=== PATIENT | male | born 1940 | race Caucasian/White ===

== ENCOUNTER 2017-01-22 12:08 | Inpatient (IN) | payer OTHER ==
[2017-01-22] MEDS ORDERED: DUONEB 0.5 MG/3 MG ONE (12:19)
[2017-01-22] MEDS ORDERED: DUONEB 0.5 MG/3 MG NEB ONE (12:21)
--- NOTE | 2017-01-22 12:53 | DR.GENAD ---
HPI - PCP Primary Care Physician: AISHA - HPI Comment HPI Comment: PATIENT TOOK NEB TREATMENT AT HOME WITHOUT IMPROVEMENT. WEAK AND FATIGUE. DECREASE ORAL INTAKE. DAILY MEDS NOT TAKING. - Complaint/Symptoms Chief Complaint Doctors Comments: INCRESING SOB, COUGH, FEVER TIMES 3 DAYS. Chief Complaint:: PATIENT STATED FOR THE PAST 3 DAYS DAYS HE HAS HAD PROBLEMS CATCHING HIS BREATH FOR 3 DAYS - Nurses notes reviewed Nurses Notes Review: Yes - Source History Provided: Patient - Mode of Arrival Mode of Arrival: Ambulatory - Timing Onset of Chief Complaint: 01/20/17 - Duration Duration: Constant Duration: Days - Severity Severity: Moderate PMH - PMH Past Medical History: Yes Past Medical History: COPD Past Surgical History: Yes Surgical History: Appendectomy, Ortho Surgery Past Surgical History Comment: PACEMAKER - Family History History of Family Medical Conditions: No - Social History Does patient currently use any type of tobacco product: No Have you used tobacco products in the last 12 months: No Type of Tobacco Use: None Does any household member use tobacco: Yes Alcohol Use: None Do you use any recreational Drugs:: No Lives With: Family Lives Where: Home - infectious screening In the last 2 months have you had wt loss of >10#?: NO Have you had fever, night sweats or hemotysis?: No Have you traveled outside the country in the last 6 months?: No Isolation: Standard ROS - Review of Systems Constitutional: Chills, Fever, Malaise, Weakness, Fatigue, Loss of Appetite. negative: Diaphoresis Eyes: No Symptoms Reported. negative: Eye Pain, Discharge ENTM: Nose Congestion. negative: Ear Pain, Nose Discharge, Mouth Pain Respiratoy: Productive Cough (SPUTUM YTHICK AND YELLOW.), Short of Breath, Wheezing. negative: Hemoptysis Cardiovascular: Chest Pain. negative: Edema, Palpitations Gastrointestinal/Abdominal: Nausea Genitourinary: No Symptoms Reported. negative: Dysuria, Frequency, Hematuria Neurological: Headache, Weakness, Dizziness Musculoskeletal: Muscle Pain Integumentary: Dryness Hematologic/Lymphatic: Easy Bleeding, Easy Bruising Endocrine: Increased Thirst, Decreased Appetite. negative: Increased Urine ( DECREASE) All Other Systems: Reviewed and Negative PE - Vital Signs Vitals: Temperature 99.1 F Pulse Rate 90 Respiratory Rate 16 Blood Pressure 122/54 O2 Sat by Pulse Oximetry 95 - General Limitations: No Limitations General Appearance: Alert, In Distress - Head Head Exam: Normal Inspection - Eyes Eye exam: Normal Appearance - ENT ENT Exam: Normal External Ear Exam External Ear Exam: Normal External Inspection TM/Canal Exam: Bilateral Normal Nose Exam: Normal Nose Exam Mouth Exam: Normal Inspection Throat Exam: Normal Inspection - Neck Neck Exam: Trachea Midline - Chest Chest Inspection: Symmetric Chest Wall Rise. negative: Tenderness - Respiratory Respiratory Exam: Respiratory Distress Respiratory Exam: Bilateral Wheezing, Bilateral Rhonchi, Bilateral Decreased Breath Sounds, Upper Wheezing, Upper Rhonchi, Lower Wheezing, Lower Rhonchi, Lower Decreased Breath Sounds - Cardiovascular Cardiovascular Exam: Regular Rate, Normal Rhythm, Normal Heart Sounds - Abdominal Exam Abdominal Exam: Normal Bowel Sounds, Soft. negative: Tenderness - Extremities Extremities Exam: Normal Inspection - Back Back Exam: Paraspinal Tenderness - Neurologic Neurological Exam: Alert, Oriented X3 - Psychiatric Psychiatric Exam: Anxious - Skin Skin Exam: Dry MDM - Additional Information Additional Information Obtained From: Family - Differential Diagnosis Differential Diagnosis: PNEUMONIA, PNEUMOTHORAX, CHF, MT, BRONCHITIS, COPD EXACERBATION Course - Treatment Treatment: SEE ORDERS - Consultation Consultation Comments: DISCUSS PATIENT WITH DR. SANCHES. HE WILL ADMIT PATIENT. - Education/Counseling Education/Counseling: Patient, Family, Education Educated On: Treatment, Diagnosis ROR - Labs Reviewed Laboratory Results Reviewed?: Yes Result Diagrams: 01/23/17 04:00 01/23/17 04:00 Laboratory: 01/22/17 12:43 Sputum - Expectorated Sputum - Final WBC 21.5 X10^3/uL (3.6-10.0) H* 01/22/17 12:35 RBC 4.14 X10^6/uL (4.7-6.0) L 01/22/17 12:35 Hgb 11.7 g/dL (13.5-18.0) L 01/22/17 12:35 Hct 35.1 % (42.0-54.0) L 01/22/17 12:35 MCV 84.7 fL (80.0-100.0) 01/22/17 12:35 MCH 28.1 pg (27.0-34.0) 01/22/17 12:35 MCHC 33.2 g/dL (33.0-35.0) 01/22/17 12:35 RDW 15.9 % (11.6-16.5) 01/22/17 12:35 Plt Count 288 X10^3/uL (150.0-450.0) 01/22/17 12:35 Plt Count Comment Adequate (ADEQUATE) 01/22/17 12:35 MPV 7.7 fL (7.4-11.0) 01/22/17 12:35 Neut % 84.4 % (42.0-75.0) H 01/22/17 12:35 Lymph % 7.7 % (21.0-51.0) L 01/22/17 12:35 Caldwell % 7.1 % (0.0-13.0) 01/22/17 12:35 Eos % 0.4 % (0.9-2.9) L 01/22/17 12:35 Baso % 0.4 % (0.2-1.0) 01/22/17 12:35 Neut # 18.2 x10^3/uL (2.2-4.8) H 01/22/17 12:35 Lymph # 1.7 X10^3/uL (1.3-2.9) 01/22/17 12:35 Caldwell # 1.5 x10^3/uL (0.3-0.8) H 01/22/17 12:35 Eos # 0.1 x10^3/uL (0.0-0.2) 01/22/17 12:35 Baso # 0.1 X10^3/uL (0.0-0.1) 01/22/17 12:35 Absolute Nucleated RBC 0.0 /100WBC 01/22/17 12:35 Total Counted 100 01/22/17 12:35 Neutrophils % (Manual) 78 % (39-76) H 01/22/17 12:35 Band Neutrophils % 8 % (0-10) 01/22/17 12:35 Lymphocytes % (Manual) 10 % (13-43) L 01/22/17 12:35 Monocytes % (Manual) 4 % (4-9) 01/22/17 12:35 Plt Morphology Comment Normal (NORMAL) 01/22/17 12:35 RBC Morphology Normal (NORMAL) 01/22/17 12:35 Sodium 131 mmol/L (136-145) L 01/22/17 12:35 Corrected Sodium TNP 01/22/17 12:35 Potassium 4.2 mmol/L (3.5-5.1) 01/22/17 12:35 Chloride 95 mmol/L (98-107) L 01/22/17 12:35 Carbon Dioxide 23.7 mmol/L (21-32) 01/22/17 12:35 BUN 16 mg/dL (7-18) 01/22/17 12:35 Creatinine 1.20 mg/dL (0.70-1.30) 01/22/17 12:35 Est GFR (MDRD) Af Amer > 60 (>60) 01/22/17 12:35 Est GFR (MDRD) Non-Af > 60 (>60) 01/22/17 12:35 Glucose 99 mg/dL (65-99) 01/22/17 12:35 Calcium 9.0 mg/dL (8.5-10.1) 01/22/17 12:35 Corrected Calcium 9.6 mg/dL (8.5-10.1) 01/22/17 12:35 Total Bilirubin 1.40 mg/dL (0.2-1.0) H 01/22/17 12:35 AST 13 Units/L (15-37) L 01/22/17 12:35 ALT 21 Units/L (12-78) 01/22/17 12:35 Alkaline Phosphatase 93 Units/L (46-116) 01/22/17 12:35 Creatine Kinase 37 Units/L (39-308) L 01/22/17 12:35 CK-MB (CK-2) < 1.0 ng/mL (0-4.0) 01/22/17 12:35 CK/CKMB % Calc 2.7 % (<4) 01/22/17 12:35 Troponin I < 0.02 ng/mL (0-1.5) 01/22/17 12:35 Total Protein 8.0 g/dL (6.4-8.2) 01/22/17 12:35 Albumin 3.2 g/dL (3.4-5.0) L 01/22/17 12:35 Globulin 4.8 g/dL (2.5-4.5) H 01/22/17 12:35 Albumin/Globulin Ratio 0.7 Ratio (1.1-2.1) L 01/22/17 12:35 - XRAY XRAY Interpreted by: Radiologist XRAY Findings: REPORT DISCUSS WITH PATIENT. - EKG Rhythm: NSR (EKG NOTED) - Diagnosis Discharge Problem: Respiratory distress, COPD exacerbation Pneumonia Qualifiers: Pneumonia type: due to unspecified organism Laterality: right Lung location: lower lobe of lung Qualified Code(s): J18.1 - Lobar pneumonia, unspecified organism Acute bronchitis Qualifiers: Bronchitis organism: unspecified organism Qualified Code(s): J20.9 - Acute bronchitis, unspecified - Discharge Plan Disposition: 09 ADMITTED INPATIENT Condition: Stable - Follow ups/Referrals - Instructions
[2017-01-22 13:00] LABS: BLOOD UREA NITROGEN 16 mg/dL (7-18); CARBON DIOXIDE 23.7 mmol/L (21-32); CHLORIDE 95 mmol/L (98-107); GLUCOSE 99 mg/dL (65-99); SODIUM 131 mmol/L (136-145); eGFR BLACK RACES > 60 (>60); eGFR NON BLACK RACES > 60 (>60)
[2017-01-22 13:04] LABS: BASOPHILS # (AUTO) 0.1 X10^3/uL (0.0-0.1); BASOPHILS % (AUTO) 0.4 % (0.2-1.0); EOSINOPHILS # (AUTO) 0.1 x10^3/uL (0.0-0.2); EOSINOPHILS % (AUTO) 0.4 % (0.9-2.9); HEMATOCRIT 35.1 % (42.0-54.0); HEMOGLOBIN 11.7 g/dL (13.5-18.0); LYMPHOCYTES # (AUTO) 1.7 X10^3/uL (1.3-2.9); LYMPHOCYTES % (AUTO) 7.7 % (21.0-51.0); MEAN CORPUSCULAR HEMOGLOBIN 28.1 pg (27.0-34.0); MEAN CORPUSCULAR HGB CONC 33.2 g/dL (33.0-35.0); MEAN CORPUSCULAR VOLUME 84.7 fL (80.0-100.0); MEAN PLATELET VOLUME 7.7 fL (7.4-11.0); MONOCYTES # (AUTO) 1.5 x10^3/uL (0.3-0.8); MONOCYTES % (AUTO) 7.1 % (0.0-13.0); NEUTROPHILS # (AUTO) 18.2 x10^3/uL (2.2-4.8); NEUTROPHILS % (AUTO) 84.4 % (42.0-75.0); PLATELET COUNT 288 X10^3/uL (150.0-450.0); RED BLOOD COUNT 4.14 X10^6/uL (4.7-6.0); RED CELL DISTRIBUTION WIDTH 15.9 % (11.6-16.5)
[2017-01-22 13:05] LABS: ALANINE AMINOTRANSFERASE 21 Units/L (12-78); ALBUMIN 3.2 g/dL (3.4-5.0); ALKALINE PHOSPHATASE 93 Units/L (46-116); ASPARTATE AMINO TRANSFERASE 13 Units/L (15-37); COR CA(FOR HYPOALB) 9.6 mg/dL (8.5-10.1)
[2017-01-22 13:08] LABS: WHITE BLOOD COUNT 21.5 X10^3/uL (3.6-10.0)
[2017-01-22 13:15] LABS: BAND NEUTROPHILS % 8 % (0-10); PLATELET MORPHOLOGY COMMENT NORMAL (NORMAL)
[2017-01-22 13:20] LABS: CKMB % 2.7 % (<4); CREATINE KINASE 37 Units/L (39-308); CREATINE KINASE MB < 1.0 ng/mL (0-4.0); TROPONIN I < 0.02 ng/mL (0-1.5)
--- NOTE | 2017-01-22 13:31 | RAD ---
HISTORY: Cough, shortness of breath Study: Chest one view Comparison: None Findings: There is a pacemaker present on the left. The heart is within normal limits in size. The prince are no rmal. The aorta is calcified. The lungs are well inflated . There is some peribronchial thickening c onsistent with bronchitis. There also appears to be a peribronchial infiltrate in the right lung bas e suggestive of bronchopneumonia. The remainder of the lung chavez are clear. IMPRESSION: Peribronchial thickening consistent with bronchitis Subtle peribronchial infiltrates right lower lobe suggestive of bronchopneumonia Reported By:
[2017-01-22] MEDS ORDERED: ROCEPHIN VIAL 1 GM 1 GM in NS 50 ML IV + SPIKE MINIBAG* 50 ML IV ONE (13:33)
[2017-01-22] MEDS ORDERED: NS 1/2 1000 ML IV 1,000 ML IV ONE (13:54)
[2017-01-22] MEDS ORDERED: ROCEPHIN 1 GM IV PREMIX * OUT OF STOCK 50 ML IV ONE (13:55)
[2017-01-22] MEDS ORDERED: TUSSIONEX PENNKINETIC SUSP PO PRN (14:44)
[2017-01-22] MEDS: NS 1/2 1000 ML IV 1,000 ML IV SCH (15:53)
[2017-01-22] MEDS: ROBITUSSIN DM PO SCH ×3 (15:53→21:11)
[2017-01-22] MEDS: LEVAQUIN PREMIX IV 750 MG 750 MG/150 ML BAG IV SCH (15:53)
[2017-01-22] MEDS ORDERED: ALDACTONE TAB 25 MG PO SCH (16:00)
[2017-01-22] MEDS: DUONEB 0.5 MG/3 MG NEB SCH ×2 (16:11→20:48)
[2017-01-22 17:05] VITALS: BMI 22.5
[2017-01-22 19:05] LABS: CKMB % 4.8 % (<4); CREATINE KINASE 21 Units/L (39-308); CREATINE KINASE MB < 1.0 ng/mL (0-4.0); TROPONIN I < 0.02 ng/mL (0-1.5)
[2017-01-22] MEDS: LITHIUM CARBONATE (PLAIN) PO SCH (21:11)
[2017-01-22] MEDS: ELIQUIS PO SCH (21:11)
[2017-01-22] MEDS: VALIUM PO PRN (22:13)
[2017-01-22] MEDS: NORCO 10/325 TAB PO PRN (22:13)
[2017-01-23] MEDS: DUONEB 0.5 MG/3 MG NEB SCH ×6 (01:02→20:35)
[2017-01-23 01:25] LABS: CKMB % 4.2 % (<4); CREATINE KINASE 24 Units/L (39-308); CREATINE KINASE MB < 1.0 ng/mL (0-4.0); TROPONIN I < 0.02 ng/mL (0-1.5)
[2017-01-23 05:24] LABS: ALANINE AMINOTRANSFERASE 16 Units/L (12-78); ALBUMIN 2.7 g/dL (3.4-5.0); ALKALINE PHOSPHATASE 86 Units/L (46-116); ASPARTATE AMINO TRANSFERASE 11 Units/L (15-37); BLOOD UREA NITROGEN 17 mg/dL (7-18); CALCIUM 8.6 mg/dL (8.5-10.1); CARBON DIOXIDE 23.4 mmol/L (21-32); CHLORIDE 102 mmol/L (98-107); COR CA(FOR HYPOALB) 9.6 mg/dL (8.5-10.1); CREATININE 1.16 mg/dL (0.70-1.30); GLUCOSE 82 mg/dL (65-99); SODIUM 136 mmol/L (136-145); TOTAL PROTEIN 7.1 g/dL (6.4-8.2); eGFR BLACK RACES > 60 (>60); eGFR NON BLACK RACES > 60 (>60)
[2017-01-23 05:26] LABS: BASOPHILS # (AUTO) 0.1 X10^3/uL (0.0-0.1); BASOPHILS % (AUTO) 0.4 % (0.2-1.0); EOSINOPHILS # (AUTO) 0.4 x10^3/uL (0.0-0.2); EOSINOPHILS % (AUTO) 2.1 % (0.9-2.9); HEMATOCRIT 32.8 % (42.0-54.0); HEMOGLOBIN 10.6 g/dL (13.5-18.0); LYMPHOCYTES # (AUTO) 1.8 X10^3/uL (1.3-2.9); LYMPHOCYTES % (AUTO) 10.4 % (21.0-51.0); MEAN CORPUSCULAR HEMOGLOBIN 27.3 pg (27.0-34.0); MEAN CORPUSCULAR HGB CONC 32.2 g/dL (33.0-35.0); MEAN CORPUSCULAR VOLUME 84.9 fL (80.0-100.0); MEAN PLATELET VOLUME 8.2 fL (7.4-11.0); MONOCYTES # (AUTO) 1.3 x10^3/uL (0.3-0.8); MONOCYTES % (AUTO) 7.6 % (0.0-13.0); NEUTROPHILS # (AUTO) 13.6 x10^3/uL (2.2-4.8); NEUTROPHILS % (AUTO) 79.5 % (42.0-75.0); PLATELET COUNT 255 X10^3/uL (150.0-450.0); RED BLOOD COUNT 3.86 X10^6/uL (4.7-6.0); RED CELL DISTRIBUTION WIDTH 15.8 % (11.6-16.5); WHITE BLOOD COUNT 17.1 X10^3/uL (3.6-10.0)
[2017-01-23] MEDS: NS 1/2 1000 ML IV 1,000 ML IV SCH ×2 (06:23→23:32)
[2017-01-23] MEDS ORDERED: [UNRECOGNIZED DRUG - OTHER] PO SCH (09:00)
[2017-01-23] MEDS: ROBITUSSIN DM PO SCH ×4 (10:35→21:32)
[2017-01-23] MEDS: LITHIUM CARBONATE (PLAIN) PO SCH ×2 (10:35→21:32)
[2017-01-23] MEDS: ELIQUIS PO SCH ×2 (10:36→21:32)
[2017-01-23] MEDS: COZAAR PO SCH (10:36)
[2017-01-23] MEDS: CORDARONE TAB 200 MG PO SCH (10:37)
[2017-01-23] MEDS: FLOMAX PO SCH (10:37)
[2017-01-23] MEDS: LANOXIN PO SCH (10:37)
[2017-01-23] MEDS: ROCEPHIN VIAL 1 GM 1 GM in NS 50 ML IV + SPIKE MINIBAG* 50 ML IV SCH (10:39)
[2017-01-23] MEDS: ADVAIR DISKUS 250/50 IN SCH ×2 (13:16→20:35)
[2017-01-23] MEDS: LEVAQUIN PREMIX IV 750 MG 750 MG/150 ML BAG IV SCH (14:29)
[2017-01-23] MEDS: VALIUM PO PRN (21:35)
[2017-01-23] MEDS: NORCO 10/325 TAB PO PRN (21:35)
[2017-01-24] MEDS: DUONEB 0.5 MG/3 MG NEB SCH ×7 (01:25→20:13)
[2017-01-24 05:30] LABS: ALANINE AMINOTRANSFERASE 19 Units/L (12-78); ALBUMIN 2.3 g/dL (3.4-5.0); ALKALINE PHOSPHATASE 80 Units/L (46-116); ASPARTATE AMINO TRANSFERASE 16 Units/L (15-37); BLOOD UREA NITROGEN 19 mg/dL (7-18); CALCIUM 8.2 mg/dL (8.5-10.1); CARBON DIOXIDE 24.1 mmol/L (21-32); CHLORIDE 105 mmol/L (98-107); COR CA(FOR HYPOALB) 9.6 mg/dL (8.5-10.1); CREATININE 1.36 mg/dL (0.70-1.30); GLUCOSE 106 mg/dL (65-99); SODIUM 137 mmol/L (136-145); TOTAL PROTEIN 6.1 g/dL (6.4-8.2); eGFR BLACK RACES > 60 (>60); eGFR NON BLACK RACES 54 (>60)
[2017-01-24] MEDS ORDERED: NS 1/2 1000 ML IV 1,000 ML IV ONE (05:35)
[2017-01-24 05:36] LABS: BASOPHILS % (AUTO) 0.4 % (0.2-1.0); EOSINOPHILS # (AUTO) 0.8 x10^3/uL (0.0-0.2); EOSINOPHILS % (AUTO) 8.7 % (0.9-2.9); HEMATOCRIT 27.9 % (42.0-54.0); HEMOGLOBIN 9.3 g/dL (13.5-18.0); LYMPHOCYTES # (AUTO) 1.6 X10^3/uL (1.3-2.9); LYMPHOCYTES % (AUTO) 16.6 % (21.0-51.0); MEAN CORPUSCULAR HEMOGLOBIN 28.4 pg (27.0-34.0); MEAN CORPUSCULAR HGB CONC 33.2 g/dL (33.0-35.0); MEAN CORPUSCULAR VOLUME 85.4 fL (80.0-100.0); MEAN PLATELET VOLUME 8.3 fL (7.4-11.0); MONOCYTES # (AUTO) 0.8 x10^3/uL (0.3-0.8); NEUTROPHILS # (AUTO) 6.2 x10^3/uL (2.2-4.8); NEUTROPHILS % (AUTO) 65.3 % (42.0-75.0); PLATELET COUNT 238 X10^3/uL (150.0-450.0); RED BLOOD COUNT 3.27 X10^6/uL (4.7-6.0); RED CELL DISTRIBUTION WIDTH 15.9 % (11.6-16.5); WHITE BLOOD COUNT 9.4 X10^3/uL (3.6-10.0)
[2017-01-24] MEDS: NS 1/2 1000 ML IV 1,000 ML IV SCH ×2 (05:52→09:27)
[2017-01-24] MEDS: ADVAIR DISKUS 250/50 IN SCH ×2 (08:36→20:13)
[2017-01-24] MEDS: ROCEPHIN VIAL 1 GM 1 GM in NS 50 ML IV + SPIKE MINIBAG* 50 ML IV SCH (08:50)
[2017-01-24] MEDS: CORDARONE TAB 200 MG PO SCH (08:51)
[2017-01-24] MEDS: LANOXIN PO SCH (08:51)
[2017-01-24] MEDS: FLOMAX PO SCH (08:51)
[2017-01-24] MEDS: ELIQUIS PO SCH ×2 (08:51→21:55)
[2017-01-24] MEDS: LITHIUM CARBONATE (PLAIN) PO SCH ×2 (08:51→21:55)
[2017-01-24] MEDS: LEVAQUIN PREMIX IV 750 MG 750 MG/150 ML BAG IV SCH (08:51)
[2017-01-24] MEDS: COZAAR PO SCH (08:52)
[2017-01-24] MEDS: ROBITUSSIN DM PO SCH ×4 (08:53→21:55)
[2017-01-24] MEDS: NORCO 10/325 TAB PO PRN (21:55)
[2017-01-24] MEDS: VALIUM PO PRN (21:55)
[2017-01-25] MEDS: DUONEB 0.5 MG/3 MG NEB SCH ×4 (00:53→12:18)
[2017-01-25 05:23] LABS: ALANINE AMINOTRANSFERASE 21 Units/L (12-78); ALBUMIN 2.2 g/dL (3.4-5.0); ALKALINE PHOSPHATASE 82 Units/L (46-116); ASPARTATE AMINO TRANSFERASE 16 Units/L (15-37); BLOOD UREA NITROGEN 17 mg/dL (7-18); CALCIUM 8.2 mg/dL (8.5-10.1); CARBON DIOXIDE 26.5 mmol/L (21-32); CHLORIDE 109 mmol/L (98-107); COR CA(FOR HYPOALB) 9.6 mg/dL (8.5-10.1); CREATININE 1.34 mg/dL (0.70-1.30); GLUCOSE 100 mg/dL (65-99); SODIUM 142 mmol/L (136-145); TOTAL PROTEIN 5.9 g/dL (6.4-8.2); eGFR BLACK RACES > 60 (>60); eGFR NON BLACK RACES 55 (>60)
[2017-01-25 05:26] LABS: BASOPHILS # (AUTO) 0.1 X10^3/uL (0.0-0.1); BASOPHILS % (AUTO) 1.2 % (0.2-1.0); EOSINOPHILS % (AUTO) 12.3 % (0.9-2.9); HEMATOCRIT 27.3 % (42.0-54.0); HEMOGLOBIN 9.1 g/dL (13.5-18.0); LYMPHOCYTES # (AUTO) 1.4 X10^3/uL (1.3-2.9); LYMPHOCYTES % (AUTO) 17.2 % (21.0-51.0); MEAN CORPUSCULAR HEMOGLOBIN 28.6 pg (27.0-34.0); MEAN CORPUSCULAR HGB CONC 33.5 g/dL (33.0-35.0); MEAN CORPUSCULAR VOLUME 85.2 fL (80.0-100.0); MEAN PLATELET VOLUME 7.9 fL (7.4-11.0); MONOCYTES # (AUTO) 0.9 x10^3/uL (0.3-0.8); MONOCYTES % (AUTO) 10.6 % (0.0-13.0); NEUTROPHILS # (AUTO) 4.7 x10^3/uL (2.2-4.8); NEUTROPHILS % (AUTO) 58.7 % (42.0-75.0); PLATELET COUNT 278 X10^3/uL (150.0-450.0); RED CELL DISTRIBUTION WIDTH 16.3 % (11.6-16.5)
[2017-01-25] MEDS: NS 1/2 1000 ML IV 1,000 ML IV SCH (06:22)
--- NOTE | 2017-01-25 07:29 | RAD ---
HISTORY: Pneumonia, cough Study: Two-view chest Comparison: January 22, 2017 Findings: Left-sided pacemaker/defibrillator is present with intact leads. Trachea is midline. Heart size is n ormal. There is hyperinflation with increased interstitial markings compatible with COPD. Significan t interval improvement in aeration in the right lung base is seen compared to prior studies. No sign ificant bronchopneumonia is present on today's exam. There is no evidence of pleural fluid or pneumo thorax. There are healed right-sided rib acute osseous abnormality is not identified. IMPRESSION: COPD with interval clearing of right basilar bronchopneumonia. Reported By:
[2017-01-25] MEDS: ADVAIR DISKUS 250/50 IN SCH (08:47)
[2017-01-25] MEDS: ROBITUSSIN DM PO SCH ×2 (10:02→14:19)
[2017-01-25] MEDS: LEVAQUIN PREMIX IV 750 MG 750 MG/150 ML BAG IV SCH (10:02)
[2017-01-25] MEDS: ROCEPHIN VIAL 1 GM 1 GM in NS 50 ML IV + SPIKE MINIBAG* 50 ML IV SCH (10:02)
[2017-01-25] MEDS: LITHIUM CARBONATE (PLAIN) PO SCH (10:03)
[2017-01-25] MEDS: LANOXIN PO SCH (10:03)
[2017-01-25] MEDS: FLOMAX PO SCH (10:04)
[2017-01-25] MEDS: ELIQUIS PO SCH (10:04)
[2017-01-25] MEDS: COZAAR PO SCH (10:04)
[2017-01-25] MEDS: CORDARONE TAB 200 MG PO SCH (10:05)
[2017-01-25 14:17] VITALS: BP 95/54
== END 2017-01-25 16:10 | disposition home or self-care (01) | DRG 194 ==
LOC: ER 12:37 → MED/SURG 14:30
PROVIDERS: ADMIT Obstetrics & Gynecology Obstetrics; ATTEND Obstetrics & Gynecology Obstetrics
DX: J18.8 Other pneumonia, unspecified organism (principal); J44.1 Chronic obstructive pulmonary disease with (acute) exacerbation; R94.31 Abnormal electrocardiogram [ECG] [EKG]; R06.09 Other forms of dyspnea; E87.1 Hypo-osmolality and hyponatremia; D72.828 Other elevated white blood cell count
CPT/HCPCS: 36415; 71010; 71020; 80053; 80162; 80178; 82550; 82553; 84484; 85025; 87040; 87070; 87205; 93005; 93010; 94640; 94760; 96365; 96374; 99284; A4216; A4222; J0696; J1956; J7620